=== PATIENT | male | born 1975 | race Two or more races ===

== ENCOUNTER 2019-03-02 13:38 | Emergency (ER) | payer SELFPAY ==
[~2019-03-02] VITALS: Ht 170.2 cm; Wt 130.6 kg
[2019-03-02 15:03] VITALS: BP 122/83
== END 2019-03-02 16:02 | disposition home or self-care (01) ==
LOC: ER 13:38
DX: B69.0 Cysticercosis of central nervous system (principal); F17.210 Nicotine dependence, cigarettes, uncomplicated; V43.52XA Car driver injured in collision with other type car in traffic accident, initial encounter; Y93.89 Activity, other specified; Y99.8 Other external cause status; Y92.410 Unspecified street and highway as the place of occurrence of the external cause
CPT/HCPCS: 70450; 71046